=== PATIENT | male | born 1960 | race Caucasian/White ===

== ENCOUNTER 2025-03-28 19:22 | Emergency (ER) | payer OTHER, SELFPAY ==
--- OUTSIDE RECORDS SUMMARY | 2025-03-28 19:26 | XMS_ITS | Encounter Summary ---
Author Organization [facility] Address [address] [place] [address] Care Team Providers Care Emt Basic Name Role Phone Alexandria Petit [facility] Primary Care Provider + Ysabel Herrera [facility] Primary Care Provider + Encounter Details Date Type Department Care Team (Late st Contact Info) Description 10/31/2022 MyCActivehourst Message Enc [facility] Medical Group Family & Internal Medicine [address] [address] [facility] [address] [place] [id number] C-Diff Social History Tobacco Use Types Packs/Day Years Used Date Smoking Tobacco: Former Cigarettes 1.5 10 0 10/13/2000 - 10/13/2010 Smokeless Tobacco: Never Comments:smoked off and on f or most of his life Alcohol Use Standard Drinks/Week Comments No 0 (1 standard drink = 0.6 oz pur e alcohol) AUDIT-C Answer Date Recorded Frequency of Alcohol Consumption Never 05/11/2019 Average Number of Drinks Not on file 019 Frequency of Binge Drinking Not on file 04/14 PHQ-2 Answer Date Recorded PHQ-2 Score - If the patient scores above 3, please move on to questions 3-9 0 05/14/2022 Sex and Gender Information Value Date Recorded Sex Assigned at Male 12/19/2018 10:04 AM GENERAL DUTY NURSE Legal Sex Male 10:52 PM CDT Gender Identity Male 12/19/2018 10:04 AM GENERAL DUTY NURSE Sexual Orientation Not on file COVID-19 Exposure Response Date Recorded In the last 10 days, have yo u been in contact with someone who was confirmed or suspected to have Coronavirus/COVID-19? No / Unsure 10/31/2022 7:39 AM GENERAL DUTY NURSE documented as of this encounter Plan of Treatment Not on file documented as of this encounter Visit Diagnoses Not on filedocumented in this encounter Additional Health Concerns Infection Onset Date Last Indicated Resolved Time COVID-19 Rule Out 11/21/2022 11/21/2022 11/21/2022 7:45 AM GENERAL DUTY NURSE COVID-19 Rule Out 11/21/2022 11/21/2022 11/22/2022 6:06 PM GENERAL DUTY NURSE COVID-19 Rule Out 12/23/2022 12/23/2022 12/23/2022 7:32 AM CDT COVID-19 Rule Out 07/31/2023 07/31/2023 07/31/2023 8:18 AM CDT COVID-19 Rule Out 09/25/2023 09/25/2023 09/25/2023 9:48 AM GENERAL DUTY NURSE COVID-19 Confirmed 09/25/2023 09/25/2023 12:32 AM GENERAL DUTY NURSE COVID-19 Rule Out 11/08/2024 11/08/2024 11/08/2024 9:32 AM GENERAL DUTY NURSE COVID-19 Rule Out 11/27/2024 11/27/2024 11/27/2024 12:56 PM GENERAL DUTY NURSE Assessment Noted Time PHQ-9 Depression Total Score: 0 12/12/19 7:59 AM GENERAL DUTY NURSE documented as of this encounter Care Teams Emt Basic Relationship Specialty Start Date End Date Alexandria Petit [facility] PCP - General Nurse Practitioner Family 10/29/2110/04 Ysabel Herrera, [facility]- [address], [address] [place] [address] PCP - General Nurse Practitioner Family 07/25/2304/12 documented as of this encounter
--- OUTSIDE RECORDS SUMMARY | 2025-03-28 19:26 | XMS_ITS | Encounter Summary ---
Author Organization [facility] Address [address] [place] [address] Care Team Providers Care Sales Operations Analyst Name Role Phone DebivannessajyotiAlexandria [facility] Primary Care Provider + Ysabel Herrera [facility] Primary Care Provider + Encounter Details Date Type Department Care Team (Late st Contact Info) Description 04/07/2023 Predictvia Message Enc [facility] Medical Group Family & Internal Medicine [address] [phone] [facility] refill Social History Tobacco Use Types Packs/Day Years [...] on file 04/14 PHQ-2 Answer Date Recorded Patient Health Questionnaire-2 Score 0 12/23/2022 Sex and Gender Information Value Date Recorded Sex Assigned at Male 12/19/2018 10:04 AM INTERVENTIONAL PHYSIATRIST Legal Sex Male 10:52 PM CDT Gender Identity Male 12/19/2018 10:04 AM INTERVENTIONAL PHYSIATRIST Sexual Orientation Not on file documented as of this encounter Progress Notes * Shea Canchola APRN - 05/01/2023 7:36 PM CDT Xray can be completed at any time. CT is not within the tube like an MRI. CT machine is open and does not involve the magnetized energy or lengthy scan. * Yajaira Hagan MA - 05/01/2023 1:51 PM CDT Please advise * Shea Canchola APRN - 04/29/2023 11:12 PM CDT Orders for Thoracic CT have been placed. However, imaging may take over a week to schedule as Radiology is booked out. He can complete an xray of his back today, or any day coming up. Order placed. * Chace Wilson RN - 04/29/2023 4:48 PM CDT Please advise on orders. * Delfino Mcgarry - 04/07/2023 11:18 AM CDT Pt called and set an appt for 04/28 with Shea. documented in this encounter Plan of Treatment Not on file documented as of this encounter Visit Diagnoses Not on filedocumented in this encounter Additional Health Concerns Infection Onset Date Last Indicated Resolved Time COVID-19 Rule Out 07/31/2023 07/31/2023 07/31/2023 8:18 AM CDT COVID-19 Rule Out 09/25/2023 09/25/2023 09/25/2023 9:48 AM INTERVENTIONAL PHYSIATRIST COVID-19 Confirmed 09/25/2023 09/25/2023 12:32 AM INTERVENTIONAL PHYSIATRIST COVID-19 Rule Out 11/08/2024 11/08/2024 11/08/2024 9:32 AM INTERVENTIONAL PHYSIATRIST COVID-19 Rule Out 11/27/2024 11/27/2024 11/27/2024 12:56 PM INTERVENTIONAL PHYSIATRIST Assessment Noted Time PHQ-9 Depression Total Score: 0 12/12/19 7:59 AM INTERVENTIONAL PHYSIATRIST documented as of this encounter Care Teams Sales Operations Analyst Relationship Specialty Start Date End Date Alexandria Petit, [facility] PCP - General Nurse Practitioner Family 10/29/2110/04 Ysabel Herrera, [facility] [address], [address] [place] [address] PCP - General Nurse Practitioner Family 07/25/2304/12 documented as of this encounter
--- OUTSIDE RECORDS SUMMARY | 2025-03-28 19:26 | XMS_ITS | Clinical Summary ---
Author Organization [facility] Address [address] [place] [address] Care Team Providers Care Nursing Clinical Director Name Role Phone Asim WHITAKER MD, Jose Enrique Gonsales Unavailable [phone] Cheli Pantoja CYLINDER PRESS OPERATOR APPRENTICE-HSE COORDINATOR Primary Care Provider Source Comments [facility],non-owned Affiliates and Associated Physician Practices is amultiple site organization consisting of ambulatory clinics and hospital sitesin [place], [place], [place] and [place]. This disclosure is being madepursuant to the Care Everywhere program and may not contain all information available regarding this patient. Last updated 18.[facility] Allergies Active Allergy Reactions Criticality Noted Date Comments Atorvastatin Myalgias Medium 11/05/2021 Medications * Be aware that medications may not be up to date on this document. Alwaysverify current medications with the patient. cetirizine (ZYRTEC) 10 MG tablet Take 1 (one) tablet by mouth once daily Active esomeprazole (NEXIUM) 20 MG capsule Take 1 (one) capsule by mouth every 2 days Active lisinopril (PRINIVIL; ZESTRIL) 20 MG tablet Take 1 (one) tablet by mouth once daily 05/14/20 22 Active fluticasone propionate (FLONASE) 50 MCG/ACT nasal spray [place] 1 (one) spray into the nose once daily Active ferrous sulfate 325 (65 FE) MG tablet Take by mouth once daily Active hydroCHLOROthiaz alejandra (Hydrodiuril) 25 MG tablet Take 1 (one) tablet by mouth once daily 90 tablet 4 06/12/20 22 Active Blood Pressure Monitor KITIndications:P rimary hypertension Use as directed 1 kit 06/18/20 22 Active amLODIPine (Norvasc) 5 MG tablet Take 1 (one) tablet by mouth once daily 90 tablet 4 09/08/20 23 Active methylPREDNISolo ne (Medrol Dosepak) 4 MG tablet TAKE 6 TABLETS ON DAY 1 DIRECTED ON PACKAGE AND DECREASE BY 1 TAB EACH DAY FOR A TOTAL OF 6 DAYS 07/31/20 23 Active Ozempic, 2 MG/DOSE, 8 MG/3ML pen INJECT 2 MG SUBCUTANEOUSLY ONCE WEEKLY. 9 mL 04/29/20 24 Active albuterol HFA (Proventil; Ventolin; Proair) 108 (90 Base) MCG/ACT inhaler Inhale 2 (two) puffs by mouth every 6 hours as needed Active rosuvastatin (Crestor) 5 MG tablet TAKE 1 TABLET BY MOUTH EVERY DAY 90 tablet 3 05/10/20 24 Active Semaglutide (2 MG/DOSE) 8 MG/3ML Subcutaneous Solution Pen-injector (Ozempic) INJECT 2 MG SUBCUTANEOUSLY ONCE WEEKLY. 9 mL 02/05/20 24 Active Semaglutide (2 MG/DOSE) 8 MG/3ML Subcutaneous Solution Pen-injector (Ozempic) INJECT 2 MG SUBCUTANEOUSLY ONCE WEEKLY. 9 mL 04/29/20 24 025 Active Active Problems Problem Noted Date Diagnosed Date Shortness of breath 01/26/2024 Assessment & Plan (01/26/2024 10:47 AM CDT): Likely multifactorial-obesity, deconditioning, PCP recommended pulmonary evaluation, hx of asthma, takes inhaler. Recent normal TTE so low probabliility of cardiac cause. Near syncope 02/07/2023 Assessment & Plan (02/07/2023 7:47 AM CDT): new symptom in last few weeks. Check monitor Mixed hyperlipidemia 02/07/2023 Assessment & Plan (01/26/2024 10:49 AM CDT): continue statin therapy Assessment & Plan (07/25/2023 11:00 AM CDT): continue statin therapy Assessment & Plan (02/07/2023 7:49 AM CDT): begin statin therapy. Patient had not been taking prescribed statin. LDL goal <70 LAFB (left anterior fascicular block) 08/14/2022 Assessment & Plan (02/04/2023 3:46 PM CDT): stable Type 2 diabetes mellitus with other specified co mplication 07/25/2022 Metabolic syndrome 07/25/2022 Class 3 severe obesity with serious comorbidity and body mass index (BMI) of 45.0 to 49.9 in adult 06/27/2022 Assessment & Plan (01/26/2024 10:50 AM CDT): Says he has been losing weight. On semaglutide. Assessment & Plan (02/07/2023 7:49 AM CDT): Highly motivated. Saw Dr. Dailey. Making progress Assessment & Plan (06/27/2022 10:30 AM CDT): I've talked to patient about seeing Dr. Dailey for this issue which I think is the major reason for his DM, HT, HF He seems very motivated to lose weight but needs a lot of assistance (HFpEF) heart failure with preserved ejection fr action 06/24/2022 Overview (06/24/2022): 05/2022 TTE Summary Left ventricular systolic function is normal with an ejection fraction by Biplane Method of Discs of 65 %. The left ventricular diastolic function is abnormal (Grade II), consistent with elevated left ventricle filling pressures. The right ventricular cavity size is enlarged. Grossly normal right ventricular systolic function. Mild pulmonary hypertension, estimated pulmonary arterial systolic pressure is 44 mmHg. The proximal ascending aorta is mildly dilated measuring 4.12 cm with an index of 1.47 cm/m2. Assessment & Plan (07/25/2023 11:01 AM CDT): Recent TTE as described in overview. Normal EF E/E'16. TRV 3, mild pulm ht This was likely on lasix so it appears he has HFpEF With addition of HCTZ his BP improved. Encouraged him to continue treadmill work and weight loss. Again encouraged diet/lifestyle/weight loss. He is now seeing Dr. Dailey for this. Started on SGLT2i Assessment & Plan (02/07/2023 7:50 AM CDT): Recent TTE as described in overview. Normal EF E/E'16. TRV 3, mild pulm ht This was likely on lasix so it appears he has HFpEF With addition of HCTZ his BP improved. Encouraged him to continue treadmill work and weight loss. Again encouraged diet/lifestyle/weight loss. He is now seeing Dr. Dailey for this. Started on SGLT2i Assessment & Plan (08/16/2022 10:17 AM CDT): Recent TTE as described in overview. Normal EF E/E'16. TRV 3, mild pulm ht This was likely on lasix so it appears he has HFpEF With addition of HCTZ his BP improved. Encouraged him to continue treadmill work and weight loss. Again encouraged diet/lifestyle/weight loss. He is now seeing Dr. Dailey for this. Started on SGLT2i Assessment & Plan (06/25/2022 3:36 PM CDT): Recent TTE as described in overview. Normal EF E/E'16. TRV 3, mild pulm ht This was likely on lasix so it appears he has HFpEF With addition of HCTZ his BP improved. Encouraged him to continue treadmill work and weight loss. he will monitor bp over next 2 weeks and report back e. Again encouraged diet/lifestyle/weight loss. Consider SGLT2i Assessment & Plan (06/24/2022 1:46 PM CDT): Recent TTE as described in overview. Normal EF E/E'16. TRV 3, mild pulm ht This was likely on lasix so it appears he has HFpEF Will treat this with diuretic and good BP control at this time. Again encouraged diet/lifestyle/weight loss. Consider SGLT2i Ascending aorta dilatation 05/17/2022 Assessment & Plan (01/26/2024 10:51 AM CDT): Stable at 4.1 cm Assessment & Plan (07/25/2023 11:00 AM CDT): Stable at 4.1 cm Assessment & Plan (08/14/2022 8:11 AM CDT): 2019 TTE showed 4.2 cm. normal LV Stable at 4.2 cm recent TTE Assessment & Plan (06/24/2022 1:06 PM CDT): 2019 TTE showed 4.2 cm. normal LV Stable at 4.2 cm recent TTE Assessment & Plan (05/17/2022 3:16 PM CDT): 2019 TTE showed 4.2 cm. normal LV checking TTE for new complaint of leg swelling and will reassess aorta at that time Localized edema 05/17/2022 Assessment & Plan (05/17/2022 3:17 PM CDT): bilateral leg edema, rule out heart failure. check TTE PCP ruled out DVT and lasix was started. Primary hypertension 05/17/2022 Assessment & Plan (01/26/2024 10:50 AM CDT): per patient in a good range when checked Assessment & Plan (07/25/2023 11:01 AM CDT): BP highish in office today. Will ask patient to monitor daily over next two weeks and report values. Action based on follow BP readings. Assessment & Plan (06/25/2022 3:37 PM CDT): high lately related to weight gain, dietary indiscretion. improved with amlodipine Added thiaze diuretic for better control. with this edema better, SOA better Encouraged continued weight loss Assessment & Plan (06/24/2022 1:07 PM CDT): high lately related to weight gain, dietary indiscretion. improved with amlodipine will add thiaze diuretic for better control. he ran out of lasix a week ago Likely component of volume excess Encouraged continued weight loss Assessment & Plan (05/17/2022 3:18 PM CDT): high lately related to weight gain, dietary indiscretion. will add amlodipine for now and monitor closely Coronary artery disease invo lving [place] coronary artery of [place] heart without angina pectoris 05/17/2022 Assessment & Plan (01/26/2024 10:51 AM CDT): documented by CCTA with nonobstructive plaque in LAD Continue with RFM and aspirin Assessment & Plan (02/07/2023 7:48 AM CDT): documented by CCTA with nonobstructive plaque in LAD Continue with RFM and aspirin Assessment & Plan (08/13/2022 3:35 PM CDT): documented by CCTA with nonobstructive plaque in LAD Continue with RFM and aspirin Assessment & Plan (06/25/2022 3:37 PM CDT): documented by CCTA with nonobstructive plaque in LAD Continue with RFM and aspirin Assessment & Plan (05/17/2022 3:19 PM CDT): documented by CCTA with nonobstructive plaque in LAD Continue with RFM and aspirin Social History Tobacco Use Types Packs/Day Years Used Date Smoking Tobacco: Never Smokeless Tobacco: Never Tobacco Cessation:Counseling Given: Not Answered AUDIT-C Answer Date Recorded Q1: How often do you have a drink containing alcohol? Never 02/13/2023 Q2: How many drinks containi ng alcohol do you have on a typical day when you are drinking? Patient does not drink Q3: How often do you have si x or more drinks on one occasion? Never 02/13/2023 PHQ-2 Answer Date Recorded Patient Health Questionnaire-2 Score 0 11/12/2023 Sex and Gender Information Value Date Recorded Sex Assigned at Male 05/10/2022 5:17 PM CDT Legal Sex Male 5:02 AM NICKEL PLANT OPERATOR Gender Identity Male 05/10/2022 5:17 PM CDT Sexual Orientation Straight 05/10/2022 5: 17 PM CDT Last Filed Vital Signs Vital Sign Reading Time Taken Comments Blood Pressure 140/82 09/15/2023 8:23 AM NICKEL PLANT OPERATOR Pulse 95 07/22/2023 9:49 AM CDT Temperature 36.1 C (97 F) 02/13/2023 8:25 PM CDT Respiratory Rate 16 07/09/2023 7:39 AM CDT Oxygen Saturation 96% 07/22/2023 9:49 AM CDT Inhaled Oxygen Concentration - - Weight 145.2 kg (320 lb) 01/26/2024 9:03 AM CDT Height 175.3 cm (5' 9) 01/26/2024 9:03 AM CDT Body Mass Index 47.26 01/26/2024 9:03 AM CDT Plan of Treatment Health Maintenance Due Date Last Done Comments COLOGUARD (AGES 45-75) - COLON CA SCREENING 1962 COLON MONITORING 1962 COLONOSCOPY - COLON CA SCREENING 1962 CT COLONOGRAPHY - COLON CA SCREENING 1962 Colorectal Cancer Screening 1962 FIT - COLON CA SCREENING 1962 FLEX SIG - COLON CA SCREENING 1962 HIV SCREENING 1977 HEPATITIS C SCREENING 08/28/1980 DTAP/TDAP/TD VACCINES (1 - Tdap) 1981 PNEUMOCOCCAL VACCINE 50+ (1 of 2 - PCV) 1981 ZOSTER VACCINE (1 of 2) 2012 DIABETES-FOOT EXAM WITH MONOFILAMENT 07/25/2022 Respiratory Syncytial Virus (RSV) Vaccine Pt: or over 60 yrs (1 - Risk 60-74 years 1-dose series) 2022 DIABETES-HGB A1C 01/07/2024 07/09/2023, , 10/30/2022, Additional history exists COVID-19 VACCINE ( - season) 2024 11/02/2021, 01/04/2021, 12/12/2020 DIABETES-SERUM CREATININE 07/09/20242022, 02/13/2023, 10/30/2022, Additional history exists DEPRESSION SCREENING 10/13/2024 11/12/2023, 10/30/2022, 07/25/2022 DIABETES - URINE PROTEIN SCREENING 10/13/2024 INFLUENZA VACCINE (Season Ended) 2025 DIABETES RETINOPATHY SCREENING 06/25/2025 06/25/2023 (Done Outside Per Patient) HEPATITIS B VACCINE Aged Out No longe r eligible based on patient's age to complete this topic HIB VACCINE Aged Out No longer eligi ble based on patient's age to complete this topic HPV VACCINE Aged Out No longer eligi ble based on patient's age to complete this topic MENINGOCOCCAL (Group B) VACCINE SHARED DECISION-MAKING Aged Out No longer eligible based on patient's age to complete this topic MENINGOCOCCAL GROUPS A/C/Y/W VACCINE Aged Out No longer eligible based on patient's age to complete this topic Procedures Procedure Name Priority Date/Time Associated Diagnosis Comments COMPREHENSIVE METABOLIC PANEL Routine 07/09/2023 8:56 AM CDT Type 2 diabetes mellitus with other specified complication, unspecified whether technician terminal and repeater insulin use Primary hypertension HEMOGLOBIN A1C - POINT OF CARE (AMB) U Routine 07/09/2023 8:40 AM CDT Type 2 diabetes mellitus with other specified complication, unspecified whether technician terminal and repeater insulin use from Last 3 Months or Most Recently Relevant to Health Maintenance Results * (ABNORMAL) COMPREHENSIVE METABOLIC PANEL (07/09/2023 8:56 AM CDT) BUN 15 7 - 26 mg/dL 07/09/2023 9:54 AM [facility] Creatinine 0.91 0.71 - 1.16 mg/dL 07/09/2023 9:54 AM [facility] Sodium 138 136 - 145 mmol/L 07/09/2023 9:54 AM [facility] Potassium 4.0 3.5 - 4.5 mmol/L 07/09/2023 9:54 AM [facility] Chloride 104 98 - 107 mmol/L 07/09/2023 9:54 AM [facility] CO2 28 22 - 29 mmol/L 07/09/2023 9:54 AM [facility] Glucose 105 70 - 115 mg/dL 07/09/2023 9:54 AM [facility] Calcium 9.1 8.4 - 10.2 mg/dL 07/09/2023 9:54 AM [facility] Protein Total 7.6 6.0 - 8.3 g/dL 07/09/2023 9:54 AM [facility] Albumin 3.8 3.4 - 5.0 g/dL 07/09/2023 9:54 AM [facility] Bilirubin Total 0.3 0.2 - 1.2 mg/dL 07/09/2023 9:54 AM [facility] Alkaline Phosphatase 78 40 - 150 U/L 07/09/2023 9:54 AM [facility] ALT 16 5 - 55 U/L 07/09/2023 9:54 AM [facility] AST 18 5 - 34 U/L 07/09/2023 9:54 AM [facility] Anion Gap 6 6 - 16 07/09/2023 9:54 AM [facility] BUN/Creatinine Ratio 16 7 - 23 07/09/2023 9:54 AM [facility] Osmolality Calculated 287 275 - 295 mOsm/kg 07/09/2023 9:54 AM [facility] Albumin/Globulin Ratio 1.0(L) 1.1 - 2.3 07/09/2023 9:54 AM [facility] eGFR by CKD-EPI >90 >=90 mL/min/1.7 3 m2 07/09/2023 9:54 AM [facility] Blood BLOOD SPECIMEN / Unknown Lab Venipuncture / Unknown 07/09/2023 8:56 AM CDT 07/09/2023 9:15 AM CDT us Lanny Martinez CYLINDER PRESS OPERATOR APPRENTICE-HSE COORDINATOR LAB - CHEMISTRY ORDERABLE S Final Result [facility] [address] [place] [address], [facility] [phone] * HEMOGLOBIN A1C - POINT OF CARE (AMB) [facility] (07/09/2023 8:40 AM CDT) Hemoglobin A1c POCT 6.1 % LUIS ANTONIO BAGLEY Blood BLOOD SPECIMEN / Unknown 07/09/2023 8:40 AM CDT Lanny Martinez CYLINDER PRESS OPERATOR APPRENTICE-HSE COORDINATOR LAB - POINT OF CARE ORDER SUSAN Final Result LUIS ANTONIO Brown [facility] [address] [facility], [place] [address], [facility] [phone] from Last 3 Months or Most Recently Relevant to Health Maintenance Insurance [employer] Care Teams Nursing Clinical Director Relationship Specialty Start Date End Date Cheli Pantoja, CYLINDER PRESS OPERATOR APPRENTICE-HSE COORDINATOR [address] OF [facility] [place] [address] PCP - General Nurse Practitioner Family 04/29/24 Jose Enrique Dailey III, MD [address] [place] [id number] Physician Internal Medicine 06/27/22
--- OUTSIDE RECORDS SUMMARY | 2025-03-28 19:26 | XMS_ITS | Patient Health Record ---
Author Organization [facility] Address [address] [facility]. [address] [place] [id number] Care Team Providers Care Cook [employer] Ch[employer] Name Role Phone Lashaun BRISCOE, Ernestine Primary Care Provider Unavailabl e Reason For Referral No Information Plan Of Treatment No Information Insurance Providers Payer Name Payer Address Payer Phone Subscriber Number Group Number Insured Name Patient Relationship to Insured Coverage Start Date Coverage End Date k [facility] [employer] [address] [place] [address] [phone] [id number] Rob Lauren Spouse - patient is the spouse of the insured
--- OUTSIDE RECORDS SUMMARY | 2025-03-28 19:26 | XMS_ITS | Clinical Summary ---
Author Organization [facility] Address [address] [place] [address] Care Team Providers Care Court Advocate Name Role Phone Ysabel Herrera [facility] Primary Care Provider + Allergies Active Allergy Reactions Criticality Noted Date Comments Atorvastatin Myalgias Medium 11/05/2021 Medications CPAP MACHINE Uses nightly Acti ve cetirizine 10 MG tablet Take 1 tablet (10 mg total) by mouth daily. Active fluticasone propionate 50 MCG/ACT nasal spray 1 spray by Nasal route daily. Active rosuvastatin (CRESTOR) 5 MG tablet Take 1 tablet (5 mg total) by mouth daily. 02/05/20 23 Active albuterol sulfate HFA 108 (90 Base) MCG/ACT inhaler Inhale 2 puffs into the lungs every 6 (six) hours as needed for Wheezing. Active ferrous sulfate, 65 mg elemental, 325 (65 FE) MG tabletIndication s:Iron deficiency anemia, unspecified iron deficiency anemia type Take 1 tablet (325 mg total) by mouth daily with breakfast. 05/11/20 24 Active Additional Information Patient not taking.Reported on 11/27/2024 Sodium Sulfate-Mag Sulfate-KCl (SUTAB) 6138-985-355 MG TabIndications:E ncounter for screening colonoscopy Take 12 tablets by mouth see administration instructions. 24 tablet 08/18/20 24 Active multi vitamin/minerals (THERA-M ENHANCED) tablet Take 1 tablet by mouth daily. Active amLODIPine (NORVASC) 5 MG tabletIndication s:Essential hypertension Take 1 tablet (5 mg total) by mouth daily. 90 tablet 12/07/19 25 Active tirzepatide (MOUNJARO) 7.5 MG/0.5ML injectionIndicat ions:Diabetes Mellitus Inject 7.5 mg into the skin once a week. Indications: Diabetes 2 mL 2 01/05/20 25 Active lisinopril (PRINIVIL) 20 MG tabletIndication s:Essential hypertension TAKE 1 TABLET BY MOUTH EVERY DAY 90 tablet 1 02/16/20 25 Active Active Problems Problem Noted Date Diagnosed Date Chest wall pain 11/27/2024 History of aortic aneurysm 11/27/2024 Overview (11/27/2024): States it is in chest cavity and last measurement approx 4.3mm. Mixed dyslipidemia 11/27/2024 Premature beats 11/27/2024 Morbid obesity with body mass index of 45.0-49.9 in adult 11/27/2024 Dyspnea on exertion 01/26/2024 Mixed hyperlipidemia 02/07/2023 Overview (11/25/2023): Last Assessment & Plan: continue statin therapy Near syncope 02/07/2023 Overview (11/25/2023): Last Assessment & Plan: new symptom in last few weeks. Check monitor Left anterior fascicular block 08/14/2022 Overview (11/25/2023): Last Assessment & Plan: stable Metabolic syndrome 07/25/2022 Type 2 diabetes mellitus wit h other specified complication ([facility]) 07/25/2022 Class 3 severe obesity with serious comorbidity and body mass index (BMI) of 45.0 to 49.9 in adult 06/27/2022 Overview (11/25/2023): Last Assessment & Plan: Highly motivated. Saw Dr. Dailey. Making progress (HFpEF) heart failure with p reserved ejection fraction ([facility]) 06/24/2022 Overview (11/25/2023): 05/2022 TTE Summary Left ventricular systolic function [...] cm with an index of 1.47 cm/m2. Last Assessment & Plan: Recent TTE as described in overview. Normal EF E/E'16. TRV 3, mild pulm ht This was likely on lasix so it appears he has HFpEF With addition of HCTZ his BP improved. Encouraged him to continue treadmill work and weight loss. Again encouraged diet/lifestyle/weight loss. He is now seeing Dr. Dailey for this. Started on SGLT2i Ascending aorta dilatation 05/17/2022 Overview (11/25/2023): Last Assessment & Plan: Stable at 4.1 cm Coronary artery disease invo lving chinik coronary artery of chinik heart without angina pectoris 05/17/2022 Overview (11/25/2023): Last Assessment & Plan: documented by CCTA with nonobstructive plaque in LAD Continue with RFM and aspirin Iron deficiency anemia 03/29/2017 Peripheral neuropathy 05/05/2015 Fatty liver 10/21/2014 Aortic aneurysm 10/19/2014 Multiple allergies 03/14/2014 Obstructive sleep apnea 06/02/2012 Essential hypertension 06/01/2012 Esophageal reflux 06/01/2012 Resolved Problems Problem Noted Date Diagnosed Date Resolved Date Encounter for screening colonoscopy 08/18/2024 08/23/2024 Encounter for screening colonoscopy 08/18/2024 10/04/2024 Encounter for screening colonoscopy 08/18/2024 10/11/2024 Encounter for screening colonoscopy 08/18/2024 12/06/2024 Lipoma of torso 05/22/2023 11/21/2023 Overview (05/22/2023): Added automatically from request for surgery [id number] Sore throat 06/30/2018 11/25/2023 Bronchospasm, acute 08/27/2017 11/21/19 24 Dizziness 03/29/2017 11/25/2023 Fatigue 03/29/2017 11/25/2023 Abnormal blood sugar 05/10/2015 024 Acute bronchitis 07/06/2014 12/11/2021 Acute upper respiratory infection 08/21/2012 11/21/2023 Obesity 08/21/2012 11/25/2023 Erectile dysfunction of nonorganic origin 06/29/2012 11/25/2023 Atrial fibrillation ([facility]) 06/02/2012 11/21/2023 Encounter for preventive health examination 05/26/2012 06/23/2020 Encounters Date Type Department Care Team Description 01/03/2025 MyChart Message Enc [facility] Medical [facility] Family & Internal Medicine [address] [address] Ysabel Herrera, PHYSICAL THERAPY ASSISTANT INSTRUCTOR- Lisa 01/03/2025 Telephone [facility] [address], [address] [place] [address] Gabby Kovacs MD Reschedule from Last 3 Months Immunizations Immunization Administration Dates Next Due PFIZER COVID-19 (MATSON CAP), MRNA, LNP-S, PF, 30 MCG/0.3 ML HANNAH-SUCROSE, IM 11/02/2021 PFIZER COVID-19 (ORIGINAL FO RMULATION, PURPLE CAP) mRNA, LNP-S, PF, 30 MCG/0.3 ML DOSE 11/02/2021,01/04/2021,12/12/2020 Tdap (Adacel) 11/29/2022 Family History Medical History Relation Comments Heart Attack Father motor vehicle accident Father Atrial Fibrillation Mother Heart Disease Sister Relation Status Comments Father Mother Alive Sister Alive Social History Tobacco Use Types Packs/Day Years Used Date Smoking Tobacco: Former Cigarettes Q uit: 10/13/2010 Smokeless Tobacco: Never Tobacco Cessation:Counseling Given: No Comments:smoked off and on for most of his life; started early teens Alcohol Use Standard Drinks/Week Comments Not Currently 0 (1 standard drink = 0.6 oz pur e alcohol) past hx alcoholism AUDIT-C Answer Date Recorded Frequency of Alcohol Consumption Never 05/11/2019 Average Number of Drinks Not on file 019 Frequency of Binge Drinking Not on file 04/14 PHQ-2 Answer Date Recorded Patient Health Questionnaire-2 Score 0 11/22/2024 Sex and Gender Information Value Date Recorded Sex Assigned at Male 12/19/2018 10:04 AM FELTING MACHINE OPERATOR Legal Sex Male 10:52 PM CDT Gender Identity Male 12/19/2018 10:04 AM FELTING MACHINE OPERATOR Sexual Orientation Not on file Last Filed Vital Signs Vital Sign Reading Time Taken Comments Blood Pressure 128/81 11/27/2024 12:00 PM FELTING MACHINE OPERATOR Pulse 92 11/27/2024 11:32 AM FELTING MACHINE OPERATOR Temperature 37.3 C (99.1 F) 11/27/2024 11:32 AM FELTING MACHINE OPERATOR Respiratory Rate 16 11/27/2024 11:32 AM FELTING MACHINE OPERATOR Oxygen Saturation 95% 11/27/2024 11:32 AM FELTING MACHINE OPERATOR Inhaled Oxygen Concentration - - Weight 151 kg (333 lb) 11/27/2024 11:32 AM FELTING MACHINE OPERATOR Height 172.7 cm (5' 8) 11/27/2024 11:32 AM FELTING MACHINE OPERATOR Body Mass Index 50.63 11/27/2024 11:32 AM FELTING MACHINE OPERATOR Plan of Treatment Health Maintenance Due Date Last Done Comments Colorectal Cancer Screening Colonoscopy (10 Years) 1962 Hepatitis C 1980 Pneumococcal Vaccine: 50+ Years (1 of 2 - PCV) 1981 Annual Physical 12/18/2021 12/18/2020 Lipid Panel 11/07/2024 05/07/2024, 06/14, 10/30/2022, Additional history exists Hemoglobin A1C 02/20/2025 11/22/2024, 07/14, 08/05/2024, Additional history exists Kidney Health Evaluation 05/07/2025 05/07/2024 COVID-19 Vaccine ( season) 2025 11/02/2021, 11/02/2021, 01/04/2021, Additional history exists Postponed from 06/13/2024 (Going to Outside Clinic) RSV Immunization or 60+ Years (1 - Risk 60-74 years 1-dose series) 08/26/2025 Postponed fro m 2022 (Going to Outside Clinic) Zoster Vaccines (1 of 2) 08/26/2025 Pos tponed from 2012 (Going to Outside Clinic) Diabetes: Retinopathy Eye Exam 06/07/2026 06/07/2024 DTaP, Tdap and Td Vaccines (2 - Td or Tdap) 11/29/2032 11/29/2022 PHQ-2 (Physician [place]) Completed 11/22/2024 Meningococcal B Vaccine Aged Out No l onger eligible based on patient's age to complete this topic Meningococcal Vaccine Aged Out No james evelyn eligible based on patient's age to complete this topic RSV Immunizations Under 20 Months Aged Out No longer eligible based on patient's age to complete this topic Procedures Procedure Name Priority Date/Time Associated Diagnosis Comments HEMOGLOBIN, GLYCOSYLATED Routine 11/22/2024 Type 2 diabetes mellitus with other specified complication, without long-term current use of insulin ([facility]) DIABETIC RETINOPATHY EXAM (NEGATIVE)(SCAN ORDER) Routine 06/07/2024 12:00 AM CDT LIPID PANEL Routine 05/07/2024 12:03 PM CDT Mixed hyperlipidemia COLONOSCOPY Routine FELTING MACHINE OPERATOR from Last 3 Months or Most Recently Relevant to Health Maintenance Results * A1C (BACK OFFICE) (11/22/2024) HGB A1C 6.8 % [id number] ANM PAUL 11/22/2024 us Ysabel Herrera PHYSICAL THERAPY ASSISTANT INSTRUCTOR- LABORATORY Final Re sult [id number], [place] [address] [place] [address], * DIABETIC RETINOPATHY EXAM (NEGATIVE) (06/07/2024 12:00 AM CDT) 06/07/2024 us Doc Hospital Scanned SCANNING Final Resul t [facility] ON[facility] * LIPID PANEL (05/07/2024 12:03 PM CDT) CHOLESTEROL 140 <200.0 MG/DL 05/07/2024 2:11 PM CDT [facility] TRIGLYCERIDES 125 <150 MG/DL 05/07/2024 2:11 PM CDT [facility] HDL 42 >40.0 MG/DL 05/07/2024 2:11 PM T [facility] LDL (CALCULATED) 73 <100 MG/DL 05/07/20 2:11 PM CDT [facility] NON HDL CHOLESTEROL 98 <130 MG/DL 05/07 2:11 PM T [facility] CHOL/HDL RATIO 3.3 0.0 - 4.5 05/07/2024 2:11 PM CDT [facility] VLDL CALCULATION 25 5 - 55 MG/DL 05/07/2024 2:11 PM T [facility] LIPID INTERPRETATION 05/07/2024 2:11 PM T [facility] Comment: NIH CONCENSUS REPORT RECOMMENDATIONS: ADULT CHILD LOW RISK: CHOLESTEROL <200 <170 TRIGLYCERIDE <150 --- HDL >=60 --- LDL <100 <110 BORDERLINE: CHOLESTEROL 200-239 170-199 TRIGLYCERIDE 150-199 --- HDL 40-59 --- LDL 100-159 110-129 HIGH RISK: CHOLESTEROL >=240 >=200 TRIGLYCERIDE >=200 --- HDL <40 --- LDL >=160 >=130 05/07/2024 12:0 3 PM CDT us Ysabel LOPEZP-BC LABORATORY Final Re sult [facility] [address] [place] [address], * Colonoscopy ( FELTING MACHINE OPERATOR) Narrative [facility] TO EPIC CONVERSION - FELTING MACHINE OPERATOR Documented hx of procedure Procedure Note Brenden Briscoe MD - 08/16/2018 Documented hx of procedure us Generic Conversion Md BRISCOE GI PROCEDURE ORDERABLES Final Result [facility] TO EPIC CONVERSION from Last 3 Months or Most Recently Relevant to Health Maintenance Insurance [employer] OPEN ACCESS [facility] Care Teams Court Advocate Relationship Specialty Start Date End Date Ysabel Herrera FNP-BC [address], [place] [address] PCP - General Nurse Practitioner Family 07/25/2304/12
--- OUTSIDE RECORDS SUMMARY | 2025-03-28 19:26 | XMS_ITS | Encounter Summary ---
Author Organization [facility] Address [address] [place] [address] Care Team Providers Care Frothing Machine Operator Name Role Phone Ysabel Herrera [facility] Primary Care Provider + Encounter Details Date Type Department Care Team (Late st Contact Info) Description 10/15/2023 Fierce & Frugal Message Enc [facility] Medical Group Family & Internal Medicine [facility] [address] [place] [address] [facility] Provider DOT information Social History Tobacco Use Types Packs/Day Years [...] Date Recorded Patient Health Questionnaire-2 Score 0 04/28/2023 Sex and Gender Information Value Date Recorded Sex Assigned at Male 12/19/2018 10:04 AM BORE MINER OPERATOR Legal Sex Male 10:52 PM CDT Gender Identity Male 12/19/2018 10:04 AM BORE MINER OPERATOR Sexual Orientation Not on file documented as of this encounter Plan of Treatment Not on file documented as of this encounter Visit Diagnoses Not on filedocumented in this encounter Additional Health Concerns Infection Onset Date Last Indicated Resolved Time COVID-19 Confirmed 09/25/2023 09/25/2023 12:32 AM BORE MINER OPERATOR COVID-19 Rule Out 11/08/2024 11/08/2024 11/08/2024 9:32 AM BORE MINER OPERATOR COVID-19 Rule Out 11/27/2024 11/27/2024 11/27/2024 12:56 PM BORE MINER OPERATOR Assessment Noted Time PHQ-9 Depression Total Score: 0 12/12/19 7:59 AM BORE MINER OPERATOR documented as of this encounter Care Teams Frothing Machine Operator Relationship Specialty Start Date End Date Ysabel Herrera, SOLDER TECHNICIAN- [address], [address] [place] [address] PCP - General Nurse Practitioner Family 07/25/2304/12 documented as of this encounter
--- OUTSIDE RECORDS SUMMARY | 2025-03-28 19:26 | XMS_ITS | Encounter Summary ---
Author Organization [facility] Address [address] [place] [address] Care Team Providers Care Marine Rigger Name Role Phone Ysabel Herrera [facility] Primary Care Provider + Encounter Details Date Type Department Care Team (Late st Contact Info) Description 05/10/2024 Client24 Message Enc [facility] Medical Group Family & Internal Medicine [facility] [address] [place] [address] Trista [facility] Provider Ivette Social History Tobacco Use Types Packs/Day Years Used Date Smoking Tobacco: Former Cigarettes Q uit: 10/13/2010 Smokeless Tobacco: Never Comments:smoked off and on f or most of his life; started early teens Alcohol Use Standard Drinks/Week Comments Not Currently 0 (1 standard drink = 0.6 oz pur e alcohol) AUDIT-C Answer Date Recorded Frequency of Alcohol Consumption Never 05/11/2019 Average Number of Drinks Not on file 019 Frequency of Binge Drinking Not on file 04/14 PHQ-2 Answer Date Recorded Patient Health Questionnaire-2 Score 0 11/21/2023 Sex and Gender Information Value Date Recorded Sex Assigned at Male 12/19/2018 10:04 AM POWER WHEELCHAIR MECHANIC Legal Sex Male 10:52 PM CDT Gender Identity Male 12/19/2018 10:04 AM POWER WHEELCHAIR MECHANIC Sexual Orientation Not on file documented as of this encounter Plan of Treatment Not on file documented as of this encounter Visit Diagnoses Not on filedocumented in this encounter Additional Health Concerns Infection Onset Date Last Indicated Resolved Time COVID-19 Rule Out 11/08/2024 11/08/2024 11/08/2024 9:32 AM POWER WHEELCHAIR MECHANIC COVID-19 Rule Out 11/27/2024 11/27/2024 11/27/2024 12:56 PM POWER WHEELCHAIR MECHANIC Assessment Noted Time PHQ-9 Depression Total Score: 0 12/12/19 7:59 AM POWER WHEELCHAIR MECHANIC documented as of this encounter Care Teams Marine Rigger Relationship Specialty Start Date End Date Ysabel Herrera, CALENDER OPERATOR HELPER- [address], [address] [place] [address] PCP - General Nurse Practitioner Family 07/25/2304/12 documented as of this encounter
--- OUTSIDE RECORDS SUMMARY | 2025-03-28 19:26 | XMS_ITS ---
Author Organization Unknown Medications Medication Instructions Effective Dates (start - stop) Status - - Compl eted rosuvastatin calcium 5 MG Or al Tablet - Completed rosuvastatin calcium 5 MG Or al Tablet - Completed rosuvastatin calcium 5 MG Or al Tablet - Completed - - Compl eted - - Compl eted acetaminophen 325 MG / hydrocodone bitartrate 5 MG Oral Tablet - Completed - - Compl eted amlodipine 5 MG Oral Tablet [id number] :00:00Z - Completed - - Compl eted - - Compl eted codeine phosphate 2 MG/ML / guaifenesin 20 MG/ML Oral Solution - Completed - - Compl eted amlodipine 5 MG Oral Tablet [id number] :00:00Z - Completed codeine phosphate 2 MG/ML / guaifenesin 20 MG/ML Oral Solution - Completed {21 (methylprednisolone 4 MG Oral Tablet) } Pack - Completed amlodipine 5 MG Oral Tablet [id number] :00:00Z - Completed - - Compl eted - - Compl eted amlodipine 5 MG Oral Tablet [id number] :00:00Z - Completed Patient Care team information Name Category Status Period Participants - - Proposed period not known -
--- OUTSIDE RECORDS SUMMARY | 2025-03-28 19:26 | XMS_ITS | Encounter Summary ---
Author Organization [facility] Address [address] [place] [address] Care Team Providers Care Sprinkler Helper Name Role Phone Asim WHITAKER MD, Jose Enrique Gonsales Unavailable Asim WHITAKER MD, Jose Enrique Gonsales Primary Care Provider [phone] Cheli Pantoja RATE SETTER-REAL ESTATE EXECUTIVE ASSISTANT Primary Care Provider Reason for Visit * Reason Onset Date Comments MEDICATION REFILL 01/13/2023 Encounter Details Date Type Department Care Team (Late st Contact [facility]) Description 01/13/2023 Refill [facility] [address] [place] [address], [place] [phone] Jose Enrique Dailey III, MD [address] [place] [phone] MEDICATION REFILL Social History Tobacco Use Types Packs/Day Years Used Date Smoking Tobacco: Never Smokeless Tobacco: Never PHQ-2 Answer Date Recorded PHQ2 TOTAL SCORE 0 01/02/2023 Sex and Gender Information Value Date Recorded Sex Assigned at Male 05/10/2022 5:17 PM CDT Legal Sex Male 5:02 AM PANEL SAW OPERATOR Gender Identity Male 05/10/2022 5:17 PM CDT Sexual Orientation Straight 05/10/2022 5: 17 PM CDT documented as of this encounter Miscellaneous Notes * Telephone Encounter - Enid Cast, RN - 01/14/2023 11:00 AM CDT Pt calling stating that he is out of Ozempic and due for next dose on 01/16. Pt is requesting refill to be authorized today so that he may quill picking machine operator tomorrow morning. * Telephone Encounter - Teresa Cage - 01/13/2023 11:38 AM CDT Refill Request Rob Armando Lauren MALOU: 08/13/22 NOV due: not applicable NOV scheduled: Visit date not found LRF: 12/18/22 Qty Disp: 3ML # of refills: none Allergies: Allergies Allergen Reactions ??? Atorvastatin Myalgias Pended Medication Order: Requested Prescriptions Pending Prescriptions Disp Refills ??? Semaglutide, 1 MG/DOSE, (Ozempic, 1 MG/DOSE,) 4 MG/3ML pen 3 mL 0 documented in this encounter Plan of Treatment Not on file documented as of this encounter Visit Diagnoses Not on filedocumented in this encounter Care Teams Sprinkler Helper Relationship Specialty Start Date End Date Jose Enrique Dailey III, MD [address] [place] [address] PCP - General 07/16/22 01/13/23 Cheli Pantoja RATE SETTER-REAL ESTATE EXECUTIVE ASSISTANT [address] [facility] [place] [address] PCP - General Nurse Practitioner Family 04/29/24 Jose Enrique Dailey III, MD [address] [place] [address] Physician Internal Medicine 06/27/22 documented as of this encounter
--- OUTSIDE RECORDS SUMMARY | 2025-03-28 19:26 | XMS_ITS | Encounter Summary ---
Author Organization [facility] Address [address] [place] [address] Care Team Providers Care Banquet Bartender Name Role Phone Alexandria Petit [facility] Primary Care Provider + Ysabel Herrera [facility] Primary Care Provider + Encounter Details Date Type Department Care Team (Late st Contact Info) Description 05/14/2022 MyCGolfsmitht Message Enc [facility] Medical Group Family & Internal Medicine [facility] [address] [place] [address] [place] [id number] [place] [address]. [address] [place] [address] Lipid panel Social History Tobacco Use Types Packs/Day Years [...] Sex Assigned at Male 12/19/2018 10:04 AM CLEANER SIGNS Legal Sex Male 10:52 PM CDT Gender Identity Male 12/19/2018 10:04 AM CLEANER SIGNS Sexual Orientation Not on file COVID-19 Exposure Response Date Recorded In the last 10 days, have yo u been in contact with someone who was confirmed or suspected to have Coronavirus/COVID-19? No / Unsure 05/14/2022 6:52 AM CDT documented as of this encounter Plan of Treatment Not on file documented as of this encounter Visit Diagnoses Not on filedocumented in this encounter Additional Health Concerns Infection Onset Date Last Indicated Resolved Time COVID-19 Rule Out 11/21/2022 11/21/2022 11/21/2022 7:45 AM CLEANER SIGNS COVID-19 Rule Out 11/21/2022 11/21/2022 11/22/2022 6:06 PM CLEANER SIGNS COVID-19 Rule Out 12/23/2022 12/23/2022 12/23/2022 7:32 AM CDT COVID-19 Rule Out 07/31/2023 07/31/2023 07/31/2023 8:18 AM CDT COVID-19 Rule Out 09/25/2023 09/25/2023 09/25/2023 9:48 AM CLEANER SIGNS COVID-19 Confirmed 09/25/2023 09/25/2023 12:32 AM CLEANER SIGNS COVID-19 Rule Out 11/08/2024 11/08/2024 11/08/2024 9:32 AM CLEANER SIGNS COVID-19 Rule Out 11/27/2024 11/27/2024 11/27/2024 12:56 PM CLEANER SIGNS Assessment Noted Time PHQ-9 Depression Total Score: 0 12/12/19 7:59 AM CLEANER SIGNS documented as of this encounter Care Teams Banquet Bartender Relationship Specialty Start Date End Date Alexandria Petit PHOTOGRAPHIC INTELLIGENCE OFFICER- PCP - General Nurse Practitioner Family 10/29/2110/04 Ysabel Herrera, [facility]- [address], [address] [place] [address] PCP - General Nurse Practitioner Family 07/25/2304/12 documented as of this encounter
--- OUTSIDE RECORDS SUMMARY | 2025-03-28 19:32 | XMS_ITS | Encounter Summary ---
Author Organization [facility] Address [address] [place] [address] Care Team Providers Care Return Clerk Name Role Phone Cristy Anne NP Primary Care Provider Unav ailable Alexandria Petit [facility] Primary Care Provider + Ysabel Herrera [facility] Primary Care Provider + Encounter Details Date Type Department Care Team (Late st Contact Info) Description 09/14/2019 Abstract [facility] Family & Internal Medicine [address] [address] Cristy Anne, ENROBER Social History Tobacco Use Types Packs/Day Years Used Date Smoking Tobacco: Former Cigarettes Q uit: 2010 Smokeless Tobacco: Never Alcohol Use Standard Drinks/Week Comments No 0 (1 standard drink = 0.6 oz pur e alcohol) AUDIT-C Answer Date Recorded Frequency of Alcohol Consumption Never 05/11/2019 Average Number of Drinks Not on file 019 Frequency of Binge Drinking Not on file 04/14 Sex and Gender Information Value Date Recorded Sex Assigned at Male 12/19/2018 10:04 AM SHELLFISH FARMING SUPERVISOR Legal Sex Male 10:52 PM CDT Gender Identity Male 12/19/2018 10:04 AM SHELLFISH FARMING SUPERVISOR Sexual Orientation Not on file documented as of this encounter Plan of Treatment Not on file documented as of this encounter Visit Diagnoses Not on filedocumented in this encounter Administered Medications Inactive Administered Medications - up to 3 most recent administrations Medication Order MAR Action Action Date Dose Rate Site ipratropium-albuterol (DUONEB) 0.5-2.5 (3) MG/3ML nebulizer solution 3 mL 3 mL, Nebulization, Once RT, 1 dose, On 09/06/19 at 1730Indications:Viral upper respiratory tract infection with cough Given 09/14/2019 1:56 PM SHELLFISH FARMING SUPERVISOR 3 mLs documented in this encounter Additional Health Concerns Infection Onset Date Last Indicated Resolved Time COVID-19 Rule Out 11/21/2022 11/21/2022 11/21/2022 7:45 AM SHELLFISH FARMING SUPERVISOR COVID-19 Rule Out 11/21/2022 11/21/2022 11/22/2022 6:06 PM SHELLFISH FARMING SUPERVISOR COVID-19 Rule Out 12/23/2022 12/23/2022 12/23/2022 7:32 AM CDT COVID-19 Rule Out 07/31/2023 07/31/2023 07/31/2023 8:18 AM CDT COVID-19 Rule Out 09/25/2023 09/25/2023 09/25/2023 9:48 AM SHELLFISH FARMING SUPERVISOR COVID-19 Confirmed 09/25/2023 09/25/2023 12:32 AM SHELLFISH FARMING SUPERVISOR COVID-19 Rule Out 11/08/2024 11/08/2024 11/08/2024 9:32 AM SHELLFISH FARMING SUPERVISOR COVID-19 Rule Out 11/27/2024 11/27/2024 11/27/2024 12:56 PM SHELLFISH FARMING SUPERVISOR documented as of this encounter Care Teams Return Clerk Relationship Specialty Start Date End Date Cristy Anne, ENROBER PCP - General NURSE PRACTITIONER 09/29/18 10/28/21 Alexandria Petit, [facility] PCP - General Nurse Practitioner Family 10/29/2110/04 Ysabel Herrera, [facility]- [address], [address] [place] [address] PCP - General Nurse Practitioner Family 07/25/2304/12 documented as of this encounter
--- OUTSIDE RECORDS SUMMARY | 2025-03-28 19:32 | XMS_ITS | Encounter Summary ---
Author Organization [facility] Address [address] [place] [address] Care Team Providers Care Chief Orthoptist Name Role Phone Ysabel Herrera [facility] Primary Care Provider + Encounter Details Date Type Department Care Team (Late st Contact Info) Description 10/15/2023 [employer] Message Enc [facility] Medical Group Family & Internal Medicine [facility] [address] [place] [address] Trista, [facility] Provider due for routine follow up appt Social History Tobacco Use Types Packs/Day Years [...] Sex Assigned at Male 12/19/2018 10:04 AM STORE DELI MANAGER Legal Sex Male 10:52 PM CDT Gender Identity Male 12/19/2018 10:04 AM STORE DELI MANAGER Sexual Orientation Not on file documented as of this encounter Progress Notes * Faustina Hinkle - 10/15/2023 2:27 PM CST Patient called and he is scheduled to establish with Ysabel Herrera on 11/21/23, however he will be out of his blood pressure medication tonight(10/15/23). He needs the refill PEARL Please. E DELI MANAGER documented in this encounter Plan of Treatment Not on file documented as of this encounter Visit Diagnoses Not on filedocumented in this encounter Additional Health Concerns Infection Onset Date Last Indicated Resolved Time COVID-19 Confirmed 09/25/2023 09/25/2023 12:32 AM STORE DELI MANAGER COVID-19 Rule Out 11/08/2024 11/08/2024 11/08/2024 9:32 AM STORE DELI MANAGER COVID-19 Rule Out 11/27/2024 11/27/2024 11/27/2024 12:56 PM STORE DELI MANAGER Assessment Noted Time PHQ-9 Depression Total Score: 0 12/12/19 7:59 AM STORE DELI MANAGER documented as of this encounter Care Teams Chief Orthoptist Relationship Specialty Start Date End Date Ysabel Herrera, [employer] [address] [facility], [address] [place] [address] PCP - General Nurse Practitioner Family 07/25/2304/12 documented as of this encounter
--- OUTSIDE RECORDS SUMMARY | 2025-03-28 19:32 | XMS_ITS | Encounter Summary ---
Author Organization [facility] Address [address] [place] [address] Care Team Providers Care Pest Technician Name Role Phone Alexandria Petit [facility] Primary Care Provider + Ysabel Herrera [facility] Primary Care Provider + Encounter Details Date Type Department Care Team (Late st Contact Info) Description 04/29/2023 [employer] Message Enc [facility] Medical Group Family & Internal Medicine [facility] [address] [place] [address] Shea Canchola, GROVE WORKER [address] [address] Sonogram Social History Tobacco Use Types Packs/Day Years [...] Sex Assigned at Male 12/19/2018 10:04 AM MANUFACTURING COST ESTIMATOR Legal Sex Male 10:52 PM CDT Gender Identity Male 12/19/2018 10:04 AM MANUFACTURING COST ESTIMATOR Sexual Orientation Not on file documented as of this encounter Progress Notes * Chace Wilson RN - 04/30/2023 8:57 AM CDT Duplicate message documented in this encounter Plan of Treatment Not on file documented as of this encounter Visit Diagnoses Not on filedocumented in this encounter Additional Health Concerns Infection Onset Date Last Indicated Resolved Time COVID-19 Rule Out 07/31/2023 07/31/2023 07/31/2023 8:18 AM CDT COVID-19 Rule Out 09/25/2023 09/25/2023 09/25/2023 9:48 AM MANUFACTURING COST ESTIMATOR COVID-19 Confirmed 09/25/2023 09/25/2023 12:32 AM MANUFACTURING COST ESTIMATOR COVID-19 Rule Out 11/08/2024 11/08/2024 11/08/2024 9:32 AM MANUFACTURING COST ESTIMATOR COVID-19 Rule Out 11/27/2024 11/27/2024 11/27/2024 12:56 PM MANUFACTURING COST ESTIMATOR Assessment Noted Time PHQ-9 Depression Total Score: 0 12/12/19 7:59 AM MANUFACTURING COST ESTIMATOR documented as of this encounter Care Teams Pest Technician Relationship Specialty Start Date End Date Alexandria Petit [facility]- PCP - General Nurse Practitioner Family 10/29/2110/04 Ysabel Herrera, [employer] [address], [address] [place] [address] PCP - General Nurse Practitioner Family 07/25/2304/12 documented as of this encounter
[2025-03-28 19:37] VITALS: BP 158/82; PULSE 88; RESP 16; TEMP 36.6; O2SAT 97
[2025-03-28] MEDS: DACRIOSE EYE IRRIGATION 118 ML BOTTLE RIGHT EYE (19:41)
[2025-03-28] MEDS: FLUORESCEIN SOD 1 MG/STRIP RIGHT EYE (19:41)
[2025-03-28] MEDS: TETRACAINE HCL 0.5% OPHTH SOLN 4 ML BTL RIGHT EYE (19:41)
--- NOTE | 2025-03-28 19:45 | ED.EYEPROB ---
HPI - Eye Problem General Chief complaint: Eye Problems Stated complaint: debris rt eye Time Seen by Provider: 03/28/25 19:40 Source: patient and RN notes reviewed Mode of arrival: ambulatory Limitations: no limitations History of Present Illness HPI Narrative: 60-year-old male presents Express Care complaining of foreign body sensation the right eye. Patient said he was taking a nap at home when he woke up and felt like something was in his eye. Patient denies any injury to his right eye. Patient reports eye discomfort, photophobia, and watery drainage. Patient tried wash in his eye out but states the sensation still present. It feels like there is something under his upper right eyelid. Patient reports slight blurry vision to the right eye but states he can see without issue. Patient denies any significant vision changes, headache, nausea, vomiting, eye pain, purulent eye discharge, fevers, or any upper respiratory symptoms, or any other symptoms. Patient has a history of diabetes and hypertension. Related Data Home Medications ?Medication ?Instructions ?Recorded ?Confirmed ?Last Taken ?Type amlodipine 5 mg tablet mg 03/28/25 Unknown History cetirizine 10 mg tablet (24Hour 5 mg PO DAILY PRN allergy symptoms 03/28/25 03/28/25 Unknown History Allergy) lisinopril 20 mg tablet mg 03/28/25 Unknown History multivitamin (Daily Multi-Vitamin 1 tablet PO DAILY 03/28/25 03/28/25 Unknown History tablet) rosuvastatin 5 mg tablet mg 03/28/25 Unknown History tirzepatide 7.5 mg/0.5 mL mg subcut 03/28/25 Unknown History subcutaneous pen injector (Mounjaro) Allergies Allergy/AdvReac Type Severity Reaction Status Date / Time No Known Allergies Allergy Mild Verified 03/28/25 19:37 Review of Systems Review of Systems: CONSTITUTIONAL: Denies fever, chills, or sweats. EYES: Denies visual changes, redness, or discharge. Positive for photophobia, blurry vision, foreign body sensation ENT: Denies rhinorrhea, congestion, sore throat, or otalgia. CARDIOVASCULAR: Denies chest pain, palpitations, or edema. RESPIRATORY: Denies cough or dyspnea. GASTROINTESTINAL: Denies abdominal pain, nausea, vomiting, or diarrhea. GENITOURINARY: Denies dysuria or hematuria. SKIN: Denies rash or itching. MUSCULOSKELETAL: Denies back pain, joint pain, or myalgia. NEUROLOGIC: Denies headache, numbness, or weakness. PSYCHIATRIC: Denies anxiety or depression. All other systems reviewed are negative, except as documented in HPI. PMFSH Comments At the time of my signature, I reviewed and agree with the nursing past medical, surgical, social, and family history. There is no relevant family history pertinent to the patient complaint. Exam Narrative: GENERAL: This is a well-nourished, well-developed adult, in no apparent distress. They are non ill-appearing, nontoxic appearing. Patient is obese. HEAD: normocephalic, atraumatic. EYES: Sclera clear/white. conjunctiva normal. Vision is grossly intact. Extraocular movements intact. Pupils PERRLA. No subconjunctival hemorrhage, or hyphema. No ciliary flush. No peak or eccentric pupils. Upper and lower eyelids normal. No foreign body visualized. Wood's lamp exam with fluorescent stain of right eye: No evidence of corneal abrasion, globe rupture, vitreous humor no scleral corneal laceration, no evidence of penetrating eye trauma. No retained foreign body. Right eyelid eversion: No retained foreign body present. Internal stye present to right medial upper eyelid, tender to palpate, nodular, and erythematous, no external stye present. Right lower eyelid normal. EARS: External ears normal, Hearing grossly intact. NOSE: External nose normal THROAT: Mucous membranes moist, NECK: Neck supple, CARDIOVASCULAR: Regular rate and rhythm w RESPIRATORY: Respiratory rate normal, respiratory effort nonlabored, no respiratory distress SKIN: warm, Dry, intact with no suspicious lesions or rash, good texture and turgor. NEURO: awake, alert, and oriented to person, place and time. There were no obvious focal neurologic abnormalities. EXTREMITIES: No joint tenderness, effusion, or edema noted. Course Course Emergency Course: Portions of this record may have been created with voice recognition software Level of Care: Express Care Visit Vital Signs Vital signs: Vital Signs Temperature 97.9 F 03/28/25 19:37 Pulse Rate 88 03/28/25 19:37 Respiratory Rate 16 03/28/25 19:37 Blood Pressure 158/82 H 03/28/25 19:37 Pulse Oximetry 97 03/28/25 19:37 Oxygen Delivery Room Air 03/28/25 19:37 Temperature 97.9 F 03/28/25 19:37 Pulse Rate 88 03/28/25 19:37 Respiratory Rate 16 03/28/25 19:37 Blood Pressure 158/82 H 03/28/25 19:37 Pulse Oximetry 97 03/28/25 19:37 Oxygen Delivery Room Air 03/28/25 19:37 Reviewed MDM - Eye Problem MDM Narrative Medical decision making narrative: No evidence of eye injury, eye infection, or corneal abrasion. Internal hodeolum present the right upper eyelid. Normal visual acuity. Recommend warm compresses will prescribe erythromycin. Discussed physical exam findings. Advised supportive measures and signs/symptoms to go to the ER. Pt is appropriate for outpt treatment and f/u. Differential Diagnosis Differential diagnosis: Likely corneal abrasion, conjunctivitis, glaucoma and other (Hordeolum, chalazion) Critical Care Time Critical Care Time Critical Care Time: No Discharge Plan Discharge Clinical Impression: Hordeolum eyelid, internal Qualifiers: Laterality: right Eyelid: upper Qualified Code(s): H00.021 - Hordeolum internum right upper eyelid Patient Disposition: Home Condition: Stable Instructions: Efe (ED) Additional Instructions: Apply warm, moist compresses on the affected area frequently (for 5 to 10 minutes three to five times per day) in order to help with drainage. Massage and gentle wiping of the affected eyelid after the warm compress can also help with drainage. You can use baby shampoo to wash the eye area with a wet cotton swab, you may also use [id number] eyelid washing solutions Avoid wearing eye makeup or contact lenses Take erythromycin ointment as directed. If the lesion does not improve within one to two weeks, please follow up with an hypo splasher for further management. Please go to the ER if you develops any vision changes, eye pain, headaches, nausea, vomiting, or any other concerns. Patient Language: Trinidadian Prescriptions: New erythromycin 5 mg/gram (0.5 %) ointment 1 cm RIGHT EYE HS 7 Days Qty: 3.5 0RF No Action lisinopril 20 mg tablet amlodipine 5 mg tablet rosuvastatin 5 mg tablet multivitamin [Daily Multi-Vitamin] Tablet 1 tablet PO DAILY cetirizine [24Hour Allergy] 10 mg tablet 5 mg PO DAILY PRN (Reason: allergy symptoms) Mounjaro 7.5 mg/0.5 mL pen injector SUBCUT Follow-up/Referrals: Javier,Ysabel Melchor APRN [Primary Care Provider] - Time of Disposition: 20:00
== END 2025-03-28 20:04 | disposition home or self-care (01) ==
PROVIDERS: PCP Nurse Practitioner Family
DX: H00.021 Hordeolum internum right upper eyelid (principal); E11.9 Type 2 diabetes mellitus without complications; I10 Essential (primary) hypertension
CPT/HCPCS: 99203; A9270; G0463